=== PATIENT | female | born 1965 | race Caucasian/White ===

== ENCOUNTER 2016-10-22 11:39 | Emergency (ER) | payer OTHER ==
[~2016-10-22] VITALS: Ht 154.9 cm; Wt 77.1 kg
[~2016-10-22 11:39] MED LIST: GLIP10TA3 PO; LISI10TA11 PO; METF1000 PO
[2016-10-22 11:46] VITALS: BP 153/77
--- NOTE | 2016-10-22 11:55 | NUR ---
51/F present to ER c/o right knee pain x4 days swelling tender--has een taking ibuprofen 800mg po q6hs, meloxicam 7.5mg tab---is being followed by pain management. Patient states she has hx of arthritis X10 years. Patient denies injury or trauma,right knee, limited ROM, pos distal pulses, <3sec cap refill, pos swelling. AAOx4, PERRLA, breathing even and unlabored, pain 10/10 throbbing radiating to foot. ERMD notified of patient status. Will continue to monitor.
--- NOTE | 2016-10-22 12:02 | NUR ---
Patient being evaluated by physician at bedside.
[2016-10-22] MEDS ORDERED: KETOROLAC 30 MG/ML VIAL IM ONE (12:05)
[2016-10-22] MEDS ORDERED: DEXAMETHASONE 4 MG/ML VIAL IVP ONE (12:45)
[2016-10-22] MEDS ORDERED: LIDOCAINE 1% 500 MG/50 ML VIAL INJ SCH (12:55)
[2016-10-22] MEDS ORDERED: LIDOCAINE 1% ED 50 ML ONE (13:00)
[2016-10-22 13:27] VITALS: BP 142/81
--- NOTE | 2016-10-22 13:27 | NUR ---
Patient discharged with v/s stable. Written and verbal after care instructions given and explained. Patient alert, oriented and verbalized understanding of instructions. Ambulatory with steady gait. All questions addressed prior to discharge. ID band removed. Patient advised to follow up with PMD. Rx of NORCO 5/325MG given. Patient educated on indication of medication including possible reaction and side effects. Opportunity to ask questions provided and answered.
== END 2016-10-22 13:27 | disposition home or self-care (01) ==
LOC: MED 11:39
DX: M17.0 Bilateral primary osteoarthritis of knee (principal); I10 Essential (primary) hypertension; E11.9 Type 2 diabetes mellitus without complications
CPT/HCPCS: 20610; 36415; 73562; 73565; 82948; 84550; 99285; J1100; J1885; J2001; 96372

== ENCOUNTER 2018-11-17 09:31 | Emergency (ER) | payer OTHER ==
[~2018-11-17] VITALS: Ht 154.9 cm; Wt 79.6 kg
[2018-11-17 09:38] VITALS: BP 148/91
--- NOTE | 2018-11-17 09:44 | NUR ---
PATIENT AMBULATED TO BED 11. Addendum: 11/17/18 at 0944 by MEDFN PATIENT AMBULATED TO BED 6.
--- NOTE | 2018-11-17 10:02 | NUR ---
DR PEREZ AT BEDSIDE
--- NOTE | 2018-11-17 10:05 | NUR ---
53 Y FEMALE BIB SELF C/O MECHANICAL FALL YESTERDAY AROUND 5. PT REPORTS FALLING ON LT KNEE. PT REPORTS NON-RADIATING CONSTANT SHARP PAIN AT 9/10 THAT INCREASES WITH STANDING UP AND AMBULATION. PT DENIES HITTING HEAD OR LOC. ABRASION ON LT KNEE. +ROM WITH PAIN. -EDEMA, ERYTHEMA, DEFORMITY. +CMS. VSS AT THIS TIME. AA0X4. BED IS DOWN, LOCKED, BED RAIL X 1, ERMD TO SEE PT. MEDHX: RT KNEE REPLACEMENT (APR 2017), DM, HTN, ANXIETY, DEPRESSION
[2018-11-17] MEDS ORDERED: KETOROLAC 30 MG/ML VIAL IM ONE (10:10)
--- NOTE | 2018-11-17 10:13 | NUR ---
pt amb to restroom for urine sample
--- NOTE | 2018-11-17 10:25 | NUR ---
xray at bedside
--- NOTE | 2018-11-17 11:31 | NUR ---
ANA EMT PLACED BREANA WRAP ON PT LT KNEE, PT VERBALIZES UNDERSTANDING OF USE
[2018-11-17 11:35] VITALS: BP 142/87
--- NOTE | 2018-11-17 11:35 | NUR ---
Patient discharged with v/s stable. Written and verbal after care instructions given and explained. Patient alert, oriented and verbalized understanding of instructions. Ambulatory with steady gait. All questions addressed prior to discharge. ID band removed. Patient advised to follow up with PMD. Rx of NORCO, NAPROSYN given. Patient educated on indication of medication including possible reaction and side effects. Opportunity to ask questions provided and answered.
== END 2018-11-17 11:35 | disposition home or self-care (01) ==
LOC: MED 09:31
DX: S83.92XA Sprain of unspecified site of left knee, initial encounter (principal); E11.9 Type 2 diabetes mellitus without complications; I10 Essential (primary) hypertension; F41.9 Anxiety disorder, unspecified; Z79.84 Long term (current) use of oral hypoglycemic drugs; Z79.899 Other long term (current) drug therapy; Z96.651 Presence of right artificial knee joint; W19.XXXA Unspecified fall, initial encounter; Y93.89 Activity, other specified; Y92.89 Other specified places as the place of occurrence of the external cause; Y99.8 Other external cause status
CPT/HCPCS: 73562; 81025; 96372; 99283; J1885; Q0092

== ENCOUNTER 2019-06-29 08:44 | Emergency (ER) | payer OTHER ==
[~2019-06-29] VITALS: Ht 154.9 cm; Wt 77.1 kg
--- NOTE | 2019-06-29 08:55 | NUR ---
PATIENT AMBULATED STEADY GAIT TO BED 2.
[2019-06-29 09:03] VITALS: BP 162/96
--- NOTE | 2019-06-29 09:07 | NUR ---
53/F C/O NECK PAIN X 2 WKS THAT WORSENED OVER THE LAST 2 DAYS. C/O NECK PAIN AT THE SIDES AND BACK OF NECK, PAIN ALSO RADIATES DOWN TO THE CHEST AND TO THE BACK. DENIES INJURY. HAD BEEN TAKING IBUPROFEN OVER THE LAST 2 WEEKS TO SOME RELIEF, BUT AFTER THE PAIN WORSENED OVER THE LAST 2 DAYS, NO RELIEF WITH IBUPROFEN. TOOK TRAMADOL LAST NIGHT TO NO RELIEF. DENIES NUMBNESS, TINGLING. HX- DM, HTN
--- NOTE | 2019-06-29 10:08 | NUR ---
DR. GAMBOA SPEAKING WITH PT AT BEDSIDE.
[2019-06-29] MEDS ORDERED: NAPROXEN 500 MG TAB PO ONE (10:15)
--- NOTE | 2019-06-29 10:17 | NUR ---
CALLED PHARMACY--THEY WILL BRING THE ORDERED NAPROSYN.
[2019-06-29] MEDS ORDERED: NAPROXEN 500 MG TAB PO SCH (10:30)
--- NOTE | 2019-06-29 10:34 | NUR ---
Patient discharged with v/s stable. Written and verbal after care instructions given and explained. Patient alert, oriented and verbalized understanding of instructions. Ambulatory with steady gait. All questions addressed prior to discharge. ID band removed. Patient advised to follow up with PMD. Rx of MEDROL, MOTRIN, ROBAXIN given. Patient educated on indication of medication including possible reaction and side effects. Opportunity to ask questions provided and answered.
[2019-06-29 10:37] VITALS: BP 158/89
== END 2019-06-29 11:07 | disposition home or self-care (01) ==
LOC: MED 08:44
DX: S16.1XXA Strain of muscle, fascia and tendon at neck level, initial encounter (principal); E11.9 Type 2 diabetes mellitus without complications; I10 Essential (primary) hypertension; Z98.890 Other specified postprocedural states; Z79.84 Long term (current) use of oral hypoglycemic drugs; Z79.899 Other long term (current) drug therapy; X58.XXXA Exposure to other specified factors, initial encounter; Y93.89 Activity, other specified; Y92.89 Other specified places as the place of occurrence of the external cause; Y99.8 Other external cause status
CPT/HCPCS: 72040; 99283

== ENCOUNTER 2019-06-30 20:14 | Emergency (ER) | payer OTHER ==
[~2019-06-30] VITALS: Ht 154.9 cm; Wt 77.1 kg
--- NOTE | 2019-06-30 20:27 | NUR ---
PT AMBULATED TO ER BED 9
[2019-06-30 20:30] VITALS: BP 164/86
--- NOTE | 2019-06-30 20:35 | NUR ---
53 YEAR OLD FEMALE COMPLAINS OF HIGH BLOOD SUGAR. PATIENT STATES BLOOD SUGAR BEFORE ARRIVAL WAS 600. PATIENT STATES NAUSEA, FEELS LIKE PASSING OUT AT TIMES, DIZZY, AND HAS A HEADACHE. PATIENT STATES HEADACHE 10/10 ACHING. PATIENT BLOOD SUGAR 508 ON ARRIVAL. PATIENT ALERT AND ORIENTED, BREATHING EVEN AND UNLABORED, SKIN WARM AND DRY. BED IN LOWEST POSITION, LOCKED, BED RAIL UPX1.
[2019-06-30] MEDS ORDERED: NACL 0.9% 1,000 ML IV SCH (20:43)
[2019-06-30] MEDS ORDERED: KETOROLAC 30 MG/ML VIAL IVP ONE (20:45)
[2019-06-30] MEDS ORDERED: ONDANSETRON 4 MG/2 ML VIAL IVP ONE (20:45)
[2019-06-30 21:14] LABS: BASOPHILS % (AUTO) 0.2 % (0.0-2.0); HEMATOCRIT 46.5 % (36-48); HEMOGLOBIN 15.2 g/dL (12.0-16.0); LYMPHOCYTES # (AUTO) 0.7 K/uL (2.5-16.5); MEAN CORPUSCULAR HEMOGLOBIN 29 pg (27-31); MEAN CORPUSCULAR HGB CONC 33 g/dL (33-37); MEAN CORPUSCULAR VOLUME 89.8 fL (80-94); MONOCYTES # (AUTO) 0.1 K/uL (0.8-1.0); MONOCYTES % (AUTO) 1.1 % (1.7-9.3); NEUTROPHILS # (AUTO) 5.9 K/uL (1.8-7.7); NEUTROPHILS % (AUTO) 88.7 % (42.2-75.2); PLATELET COUNT (AUTO) 231 K/uL (140-450); RED BLOOD CELL COUNT(AUTO) 5.18 MIL/uL (4.20-5.40); RED CELL DISTRIBUTION WIDTH 13.1 % (11.6-13.7); WHITE BLOOD COUNT (AUTO) 6.7 K/uL (4.8-10.8)
--- NOTE | 2019-06-30 21:59 | NUR ---
PATIENT WALKED TO RESTROOM WITH . ALERT AND ORIENTED, SAYS SHE IS FEELING A LITTLE BETTER. BREATHING EVEN AND UNLABORED, SKIN WARM AND DRY. WILL CONTINUE TO MONITOR.
[2019-06-30 22:00] LABS: ALBUMIN 4.1 g/dL (3.4-5.0); CARBON DIOXIDE 27.6 mmol/L (21-32); CREATININE 0.8 mg/dL (0.6-1.3); POTASSIUM 4.6 mmol/L (3.5-5.1); TOTAL BILIRUBIN 0.4 mg/dL (0.0-1.0)
[2019-06-30 22:06] LABS: APPEARANCE,URINE CLEAR (CLEAR); BILIRUBIN,URINE NEGATIVE (NEGATIVE); BLOOD, URINE NEGATIVE (NEGATIVE); LEUKOCYTE ESTERASE ,URINE NEGATIVE (NEGATIVE); NITRITE, URINE NEGATIVE (NEGATIVE); UGLUCOSE 3+ (NEGATIVE)
[2019-06-30 22:07] LABS: COLOR,URINE STRAW (YELLOW)
[2019-06-30] MEDS ORDERED: INSULIN REGULAR, HUMAN 100 UNIT/ML VIAL SUBQ ONE (22:15)
--- NOTE | 2019-06-30 22:16 | NUR ---
DR. OLIVARES BEDSIDE EVALUATING PT
[2019-06-30] MEDS ORDERED: MORPHINE SULFATE 4 MG/ML SYR IVP ONE (22:25)
--- NOTE | 2019-06-30 23:36 | NUR ---
ACCUCHECK [id number], DR OLIVARES AT BEDSIDE SPEAKING WITH PT. PT REPORTS 5/10 HEADACHE WITH IMPROVEMENT AFTER MEDS. VS NOTED, AWARE.
[2019-06-30 23:53] VITALS: BP 168/77
--- NOTE | 2019-06-30 23:53 | NUR ---
Patient discharged with v/s stable. Written and verbal after care instructions given and explained. Patient alert, oriented and verbalized understanding of instructions. Ambulatory with steady gait. All questions addressed prior to discharge. ID band removed. Patient advised to follow up with PMD. Rx of ANJU TAYLOR given. Patient educated on indication of medication including possible reaction and side effects. Opportunity to ask questions provided and answered.
== END 2019-06-30 23:53 | disposition home or self-care (01) ==
LOC: MED 20:14
DX: E11.65 Type 2 diabetes mellitus with hyperglycemia (principal); R51 Headache; I10 Essential (primary) hypertension; Z98.890 Other specified postprocedural states; Z79.84 Long term (current) use of oral hypoglycemic drugs; Z79.899 Other long term (current) drug therapy
CPT/HCPCS: 36415; 80053; 81003; 81025; 83690; 85025; 96361; 96372; 96374; 96375; 99283; J1815; J1885; J2270; J2405

== ENCOUNTER 2019-12-05 10:13 | Emergency (ER) | payer OTHER ==
[~2019-12-05] VITALS: Ht 154.9 cm; Wt 77.1 kg
[2019-12-05 10:23] VITALS: BP 166/97
[2019-12-05] MEDS ORDERED: MECLIZINE 25 MG TAB PO ONE (10:40)
[2019-12-05 11:38] VITALS: BP 166/97
== END 2019-12-05 11:39 | disposition home or self-care (01) ==
LOC: MED 10:13
DX: R42 Dizziness and giddiness (principal); E11.9 Type 2 diabetes mellitus without complications; I10 Essential (primary) hypertension; R20.2 Paresthesia of skin; Z79.899 Other long term (current) drug therapy; Z98.890 Other specified postprocedural states
CPT/HCPCS: 73630; 81002; 81025; 99283; J8597; Q0092

== ENCOUNTER 2021-01-21 08:55 | Emergency (ER) | payer OTHER ==
[~2021-01-21] VITALS: Ht 154.9 cm; Wt 78.2 kg
[~2021-01-21 08:55] MED LIST changes: +LISI-486 PO; -LISI10TA11 PO
[2021-01-21 08:58] VITALS: BP 157/94
--- NOTE | 2021-01-21 09:11 | NUR ---
Carol chapa in [facility] - 01/21/21 at 0913 by MED1 PT AMBULATED TO BED 12.
--- NOTE | 2021-01-21 11:24 | NUR ---
PT AMBULATED TO BED 6
--- NOTE | 2021-01-21 11:51 | NUR ---
Dr. Harding is evaluating the patient at bedside.
[2021-01-21] MEDS ORDERED: KETOROLAC 30 MG/ML VIAL IM ONE (11:55)
[2021-01-21] MEDS ORDERED: HYDROcodone/APAP 5/325 MG 1 TAB TAB PO ONE (11:55)
--- NOTE | 2021-01-21 11:56 | NUR ---
55/F presents to ED with c/o back pain. Patient states she has had intermittent pain for the past month in her back now radiating to the front of her body. Patient states "my had shingles two years ago and I feel like I have the same symptoms." No rash noted, upper back is tender to touch, states she has been taking a "cannabis medication" for pain but states it only makes her "sleepy." Patient alert and oriented x4, answering questions appropriately.
[2021-01-21] MEDS ORDERED: KETOROLAC 60 MG/2 ML VIAL IM ONE (12:04)
--- NOTE | 2021-01-21 12:09 | NUR ---
large animal husbandry technician at bedside.
[2021-01-21] MEDS ORDERED: ACYC400T14 PO (12:56)
[2021-01-21] MEDS ORDERED: ACET-8386 PO (12:56)
[2021-01-21 13:08] VITALS: BP 157/94
--- NOTE | 2021-01-21 13:09 | NUR ---
Patient discharged with v/s stable. Written and verbal after care instructions given and explained. Patient alert, oriented and verbalized understanding of instructions. Ambulatory with steady gait. All questions addressed prior to discharge. ID band removed. Patient advised to follow up with PMD. Rx of Acyclovir and [place] given. Patient educated on indication of medication including possible reaction and side effects. Opportunity to ask questions provided and answered. Educated not to drink or drive while taking narcotics such as [place], verbalized understanding.
== END 2021-01-21 13:09 | disposition home or self-care (01) ==
LOC: MED 08:55
DX: M54.9 Dorsalgia, unspecified (principal); E11.9 Type 2 diabetes mellitus without complications; I10 Essential (primary) hypertension; F12.90 Cannabis use, unspecified, uncomplicated; Z79.84 Long term (current) use of oral hypoglycemic drugs; Z79.899 Other long term (current) drug therapy
CPT/HCPCS: 71045; 96372; 99283; J1885

== ENCOUNTER 2021-03-23 09:01 | Emergency (ER) | payer OTHER ==
[~2021-03-23] VITALS: Ht 154.9 cm; Wt 75.7 kg
[~2021-03-23 09:01] MED LIST changes: +ACET-8386 PO; +ACYC400T14 PO
--- NOTE | 2021-03-23 09:19 | NUR ---
CALLED NAME IN LOBBY, NO ANSWER AT THIS TIME
[2021-03-23 09:29] VITALS: BP 169/94
[2021-03-23] MEDS ORDERED: HYDROcodone/APAP 5/325 MG 1 TAB TAB PO ONE (09:40)
[2021-03-23] MEDS ORDERED: ACET-503 PO (10:59)
--- NOTE | 2021-03-23 11:12 | NUR ---
Patient discharged with v/s stable. Written and verbal after care instructions given and explained. Patient alert, oriented and verbalized understanding of instructions. Ambulatory with steady gait. All questions addressed prior to discharge. ID band removed. Patient advised to follow up with PMD. Rx of Tylenol with Codeine #3 given. Patient educated on indication of medication including possible reaction and side effects. Opportunity to ask questions provided and answered.
== END 2021-03-23 11:12 | disposition home or self-care (01) ==
LOC: MED 09:01
DX: S80.02XA Contusion of left knee, initial encounter (principal); S80.01XA Contusion of right knee, initial encounter; E11.9 Type 2 diabetes mellitus without complications; Z98.890 Other specified postprocedural states; W19.XXXA Unspecified fall, initial encounter; Y93.89 Activity, other specified; Y92.89 Other specified places as the place of occurrence of the external cause; Y99.8 Other external cause status
CPT/HCPCS: 73562; 73590; 99284

== ENCOUNTER 2021-06-09 08:39 | Emergency (ER) | payer OTHER ==
[~2021-06-09] VITALS: Ht 154.9 cm; Wt 77.6 kg
[~2021-06-09 08:39] MED LIST changes: +ACET-503 PO
[2021-06-09 08:53] VITALS: BP 153/84
--- NOTE | 2021-06-09 08:56 | NUR ---
PT AMBULATED TO BED
--- NOTE | 2021-06-09 09:05 | NUR ---
55 y/o F BIB self from home c/o left ear ache x 3 days. Patient A&Ox4, ambulatory, states hx of shingles 3 months ago and completed ABX tx. Patient states burning sensation returned x 1 week ago; no rash/blisters noted. Pt states 10/10, aching/constant, non-radiating pain. Pt reports muffled hearing loss to left ear. Patient denies fever, chills, dizziness, headache, chest pain, dizziness. Ibuprofen 800mg last night. Bed locked in lowest position, side rails x 1. PMH/Sx/Meds: DM, shingles NKA
--- NOTE | 2021-06-09 10:02 | NUR ---
Dr. Larry is evaluating pt at bedside
[2021-06-09] MEDS ORDERED: GABA100C PO (10:24)
[2021-06-09] MEDS ORDERED: TRIA55SP11 NS (10:24)
[2021-06-09] MEDS ORDERED: AMOX500C25 PO (10:24)
[2021-06-09 10:38] VITALS: BP 154/88
--- NOTE | 2021-06-09 10:40 | NUR ---
Patient discharged with v/s stable. Written and verbal after care instructions given and explained. Patient alert, oriented and verbalized understanding of instructions. Ambulatory with steady gait. All questions addressed prior to discharge. ID band removed. Patient advised to follow up with PMD. Rx of Gabapentin, Amoxicillin, Triamcinolone Acetonide given. Patient educated on indication of medication including possible reaction and side effects. Opportunity to ask questions provided and answered.
== END 2021-06-09 10:40 | disposition home or self-care (01) ==
LOC: MED 08:39
DX: H72.92 Unspecified perforation of tympanic membrane, left ear (principal); H66.92 Otitis media, unspecified, left ear; R09.81 Nasal congestion; J30.9 Allergic rhinitis, unspecified; B02.29 Other postherpetic nervous system involvement
CPT/HCPCS: 99283

== ENCOUNTER 2021-08-15 10:01 | Emergency (ER) | payer OTHER ==
[~2021-08-15] VITALS: Ht 154.9 cm; Wt 78.0 kg
[~2021-08-15 10:01] MED LIST changes: +AMOX500C25 PO; +GABA100C PO; +TRIA55SP11 NS
[2021-08-15 10:06] VITALS: BP 168/77
--- NOTE | 2021-08-15 10:15 | NUR ---
Patient ambulated to bed 11 with steady/even gait.
--- NOTE | 2021-08-15 10:15 | NUR ---
55/F BIB SELF WITH C/O BACK AND BREAST PAIN. STATES SHE WAS DX 8 MONTHS AGO WITH SHINGLES AND GIVEN RX OF GABAPENTIN WITH NO RELIEF. STATES PAIN IS RADIATING TO HER RIGHT BREAST AND IS WORSENING. PT REPORTS 10/, SHARP/BURNING/CONSTANT, RADITAING TO R BREAST. REPORTS HX OF SHINGLES "TO MY LIPS" 6 YEARS AGO; SEEN BY PCP AND PRESCRIBED GABAPENTIN WITHOUT RELIEF TO SYMPTOMS. PT REPORTS CURRENTLY CHANGING DOCTORS AT THIS TIME. DENIES RASH, FEVERS, CHILLS. PT PLACED INTO A GOWN. BED LOCKED IN LOWEST POSITION, SIDE RAILS X 1. MEDHX: DM, HTN ALLERGIES: NKA
--- NOTE | 2021-08-15 10:17 | NUR ---
Female Percussion Tuner accompanied DR. FARLEY DURING EXAM.
[2021-08-15] MEDS ORDERED: HYDROcodone/APAP 5/325 MG 1 TAB TAB PO ONE (10:30)
[2021-08-15] MEDS ORDERED: ACET-8386 PO (10:57)
[2021-08-15] MEDS ORDERED: NALO4SPR NS (10:58)
--- NOTE | 2021-08-15 11:10 | NUR ---
Dr. Harding is reevaluating pt at bedside
--- NOTE | 2021-08-15 11:11 | NUR ---
Patient discharged with v/s stable. Written and verbal after care instructions given and explained. Patient alert, oriented and verbalized understanding of instructions. Ambulatory with steady gait. All questions addressed prior to discharge. ID band removed. Patient advised to follow up with PMD. Rx of Naloxone, Hydrocodone/Acetaminophen given. Patient educated on indication of medication including possible reaction and side effects. Opportunity to ask questions provided and answered.
== END 2021-08-15 11:11 | disposition home or self-care (01) ==
LOC: MED 10:01
DX: M79.2 Neuralgia and neuritis, unspecified (principal); E11.9 Type 2 diabetes mellitus without complications; I10 Essential (primary) hypertension
CPT/HCPCS: 71045; 99283; Q0092

== ENCOUNTER 2021-09-07 13:26 | Inpatient (IN) | payer OTHER, SELFPAY ==
[~2021-09-07] VITALS: Ht 154.9 cm; Wt 72.6 kg
[~2021-09-07 13:26] MED LIST changes: +NALO4SPR NS
[2021-09-07 13:33] VITALS: BP 173/94
[2021-09-07] MEDS ORDERED: HYDROcodone/APAP 5/325 MG 1 TAB TAB PO ONE (13:50)
[2021-09-07] MEDS ORDERED: MORPHINE SULFATE 4 MG/ML SYR IVP ONE (14:35)
[2021-09-07 15:37] LABS: BASOPHILS % (AUTO) 0.3 % (0.0-2.0); EOSINOPHILS # (AUTO) 0.1 K/uL (0-0.4); EOSINOPHILS % (AUTO) 1.9 % (0.0-4.0); HEMATOCRIT 44.1 % (36-48); HEMOGLOBIN 15.3 g/dL (12.0-16.0); LYMPHOCYTES # (AUTO) 1.8 K/uL (2.5-16.5); LYMPHOCYTES % (AUTO) 25.9 % (20.5-51.1); MEAN CORPUSCULAR HEMOGLOBIN 31 pg (27-31); MEAN CORPUSCULAR HGB CONC 35 g/dL (33-37); MEAN CORPUSCULAR VOLUME 88.4 fL (80-94); MONOCYTES # (AUTO) 0.3 K/uL (0.8-1.0); MONOCYTES % (AUTO) 4.9 % (1.7-9.3); NEUTROPHILS # (AUTO) 4.6 K/uL (1.8-7.7); PLATELET COUNT (AUTO) 200 K/uL (140-450); RED BLOOD CELL COUNT(AUTO) 4.98 MIL/uL (4.20-5.40); RED CELL DISTRIBUTION WIDTH 13.8 % (11.6-13.7); WHITE BLOOD COUNT (AUTO) 6.9 K/uL (4.8-10.8)
[2021-09-07] MEDS ORDERED: ACETAMINOPHEN 325 MG TAB PO PRN (15:40)
[2021-09-07] MEDS ORDERED: HYDROcodone/APAP 5/325 MG 1 TAB TAB PO PRN (15:40)
[2021-09-07] MEDS ORDERED: ONDANSETRON 4 MG/2 ML VIAL IVP PRN (15:40)
[2021-09-07] MEDS ORDERED: INSU100I21 SUBQ (15:51)
[2021-09-07 15:54] LABS: ANION GAP 11.1 (8-16); CARBON DIOXIDE 31.9 mmol/L (21-32); TOTAL BILIRUBIN 0.4 mg/dL (0.0-1.0)
[2021-09-07] MEDS ORDERED: KETOROLAC 15 MG/ML VIAL IVP PRN (15:55)
[2021-09-07] MEDS: NACL 0.9% 1,000 ML IV SCH (16:18)
[2021-09-07 17:00] VITALS: BP 151/80
[2021-09-07] MEDS ORDERED: DEXTROSE 50% 50 ML SYR IVP PRN (19:25)
[2021-09-07 20:00] VITALS: BP 140/61
[2021-09-07] MEDS: MORPHINE SULFATE 4 MG/ML SYR IVP PRN (21:12)
[2021-09-07] MEDS: BLOOD GLUCOSE MONITORING 1 DEV DEV FS SCH (21:17)
[2021-09-07] MEDS: INSULIN LISPRO SLIDING SCALE 100 UNITS/ML VIAL SUBQ PRN (21:22)
[2021-09-08] MEDS: MORPHINE SULFATE 4 MG/ML SYR IVP PRN ×2 (02:07→10:56)
[2021-09-08] MEDS: NACL 0.9% 1,000 ML IV SCH ×2 (04:10→06:20)
[2021-09-08 05:12] LABS: BASOPHILS % (AUTO) 0.4 % (0.0-2.0); EOSINOPHILS # (AUTO) 0.2 K/uL (0-0.4); EOSINOPHILS % (AUTO) 3.1 % (0.0-4.0); HEMATOCRIT 39.4 % (36-48); HEMOGLOBIN 13.2 g/dL (12.0-16.0); LYMPHOCYTES # (AUTO) 1.9 K/uL (2.5-16.5); LYMPHOCYTES % (AUTO) 34.9 % (20.5-51.1); MEAN CORPUSCULAR HEMOGLOBIN 30 pg (27-31); MEAN CORPUSCULAR HGB CONC 34 g/dL (33-37); MEAN CORPUSCULAR VOLUME 88.4 fL (80-94); MONOCYTES # (AUTO) 0.3 K/uL (0.8-1.0); MONOCYTES % (AUTO) 5.6 % (1.7-9.3); NEUTROPHILS # (AUTO) 3.1 K/uL (1.8-7.7); PLATELET COUNT (AUTO) 173 K/uL (140-450); RED BLOOD CELL COUNT(AUTO) 4.46 MIL/uL (4.20-5.40); RED CELL DISTRIBUTION WIDTH 13.7 % (11.6-13.7); WHITE BLOOD COUNT (AUTO) 5.6 K/uL (4.8-10.8)
[2021-09-08 05:39] LABS: ALBUMIN 3.3 g/dL (3.4-5.0); ANION GAP 8.6 (8-16); CARBON DIOXIDE 31.4 mmol/L (21-32); CREATININE 0.6 mg/dL (0.6-1.3); TOTAL BILIRUBIN 0.4 mg/dL (0.0-1.0)
[2021-09-08] MEDS: BLOOD GLUCOSE MONITORING 1 DEV DEV FS SCH ×2 (06:36→12:26)
[2021-09-08] MEDS: INSULIN LISPRO SLIDING SCALE 100 UNITS/ML VIAL SUBQ PRN ×3 (06:37→12:31)
[2021-09-08 08:00] VITALS: BP 159/88
[2021-09-08] MEDS ORDERED: ACET-9525 PO (14:59)
[2021-09-08 16:00] VITALS: BP 158/82
== END 2021-09-08 16:45 | disposition home or self-care (01) | DRG 135 ==
LOC: MED 13:26 → MTU 15:40 → OBSVTOIN 15:40 → MMU 16:02
PROVIDERS: ADMIT Student in an Organized Health Care Education/Training Program; ATTEND Student in an Organized Health Care Education/Training Program
DX: S22.41XA Multiple fractures of ribs, right side, initial encounter for closed fracture (principal); E11.65 Type 2 diabetes mellitus with hyperglycemia; E78.5 Hyperlipidemia, unspecified; I10 Essential (primary) hypertension; W18.39XA Other fall on same level, initial encounter; Z20.822 Contact with and (suspected) exposure to COVID-19; Z79.1 Long term (current) use of non-steroidal anti-inflammatories (NSAID); Z79.899 Other long term (current) drug therapy; Y93.89 Activity, other specified; Y92.89 Other specified places as the place of occurrence of the external cause; Y99.8 Other external cause status
CPT/HCPCS: 36415; 71101; 80053; 82948; 85025; 87081; 96374; 96375; 99285; J1885; J2270

== ENCOUNTER 2021-12-18 18:50 | Emergency (ER) | payer OTHER ==
[~2021-12-18] VITALS: Ht 154.9 cm; Wt 73.9 kg
[~2021-12-18 18:50] MED LIST changes: -ACET-503 PO; -ACET-8386 PO; -ACYC400T14 PO; -AMOX500C25 PO; -GLIP10TA3 PO; +INSU100I21 SUBQ; -METF1000 PO; -NALO4SPR NS; -TRIA55SP11 NS
[2021-12-18 18:51] VITALS: BP 127/81
--- NOTE | 2021-12-18 20:10 | NUR ---
SEEN AND EXAMINED BY PA
[2021-12-18] MEDS ORDERED: KETOROLAC 30 MG/ML VIAL IM ONE (20:15)
[2021-12-18] MEDS ORDERED: DICL100G31 TP (20:23)
[2021-12-18] MEDS ORDERED: METH-1681 PO (20:23)
[2021-12-18 20:40] VITALS: BP 119/79
--- NOTE | 2021-12-18 20:40 | NUR ---
Patient discharged with v/s stable. Written and verbal after care instructions given and explained. Patient alert, oriented and verbalized understanding of instructions. Ambulatory with steady gait. All questions addressed prior to discharge. ID band removed. Patient advised to follow up with PMD. Rx of ROBAXIN, DICLOFENAC given. Patient educated on indication of medication including possible reaction and side effects. Opportunity to ask questions provided and answered.
== END 2021-12-18 20:40 | disposition home or self-care (01) ==
LOC: MED 18:50
DX: M25.511 Pain in right shoulder (principal); E11.9 Type 2 diabetes mellitus without complications; I10 Essential (primary) hypertension; Z79.899 Other long term (current) drug therapy; Z79.4 Long term (current) use of insulin
CPT/HCPCS: 96372; 99283; J1885

== ENCOUNTER 2022-05-17 16:46 | Emergency (ER) | payer OTHER ==
[~2022-05-17] VITALS: Ht 154.9 cm; Wt 72.6 kg
[~2022-05-17 16:46] MED LIST changes: +DICL100G31 TP; +METH-1681 PO
[2022-05-17 16:50] VITALS: BP 170/80
--- NOTE | 2022-05-17 17:04 | NUR ---
56F presents to ED with c/o right shoulder today. Pt reports seeing her granddaughter about to fall and reaching out with her right arm to catch her, states she heard a "pop." Pt reports taking tramadol and motrin with no relief. Limited ROM, no obvious swelling or deformities noted upon assessment.
[2022-05-17] MEDS ORDERED: HYDROcodone/APAP 5/325 MG 1 TAB TAB PO ONE (17:50)
[2022-05-17] MEDS ORDERED: NAPR-1704 PO (17:56)
--- NOTE | 2022-05-17 18:12 | NUR ---
SLING APPLIED TO R SHOULDER. + CMS
--- NOTE | 2022-05-17 18:22 | NUR ---
Patient discharged with v/s stable. Written and verbal after care instructions about shoulder sprain given and explained. Patient alert, oriented and verbalized understanding of instructions. Ambulatory with steady gait. All questions addressed prior to discharge. ID band removed. Patient advised to follow up with PMD. Rx of Naprosyn given. Patient educated on indication of medication including possible reaction and side effects. Opportunity to ask questions provided and answered.
== END 2022-05-17 18:22 | disposition home or self-care (01) ==
LOC: MED 16:46
DX: S43.401A Unspecified sprain of right shoulder joint, initial encounter (principal); I10 Essential (primary) hypertension; E11.9 Type 2 diabetes mellitus without complications; W18.30XA Fall on same level, unspecified, initial encounter; Y93.89 Activity, other specified; Y92.89 Other specified places as the place of occurrence of the external cause; Y99.8 Other external cause status
CPT/HCPCS: 73030; 99283; Q0092

== ENCOUNTER 2023-06-17 15:51 | Emergency (ER) | payer OTHER ==
[~2023-06-17] VITALS: Ht 154.9 cm; Wt 72.6 kg
[~2023-06-17 15:51] MED LIST changes: -INSU100I21 SUBQ; +INSU100I34 SUBQ; +NAPR-1704 PO
[2023-06-17 15:58] VITALS: BP 140/75; PULSE 81; RESP 18; TEMP 97.5; O2SAT 97
[2023-06-17 17:03] LABS: FLU A ANTIGEN negative (NEGATIVE); FLU B ANTIGEN negative (NEGATIVE)
[2023-06-17] MEDS ORDERED: BENZ200C4 PO (17:10)
[2023-06-17] MEDS ORDERED: AZIT250T4 PO (17:10)
== END 2023-06-17 17:16 | disposition home or self-care (01) ==
LOC: MED 15:51
DX: J06.9 Acute upper respiratory infection, unspecified (principal); R03.0 Elevated blood-pressure reading, without diagnosis of hypertension; Z20.822 Contact with and (suspected) exposure to COVID-19; E11.9 Type 2 diabetes mellitus without complications; I10 Essential (primary) hypertension; Z79.899 Other long term (current) drug therapy; Z79.2 Long term (current) use of antibiotics; Z79.1 Long term (current) use of non-steroidal anti-inflammatories (NSAID); Z79.4 Long term (current) use of insulin
CPT/HCPCS: 71046; 99284